=== PATIENT | male | born 1950 | race Caucasian/White ===

== ENCOUNTER 2017-08-28 05:51 | Inpatient (IN) | payer OTHER ==
[2017-08-28] MEDS: POLYMYXIN/BACITRACIN 1L IRRIG (07:22)
[2017-08-28] MEDS ORDERED: LIDOCAINE 2% (SDV) 5 ML INJ (08:00)
[2017-08-28] MEDS ORDERED: morphine SULFATE/PF (10 MG/10 ML) INJ (08:01)
[2017-08-28] MEDS ORDERED: BUPIVACAINE 0.75%/DEXT (SPINAL) 2 ML INJ (08:01)
[2017-08-28] MEDS ORDERED: PROPOFOL 20 ML (08:01)
[2017-08-28] MEDS ORDERED: CEFAZOLIN 1 GM INJ (08:01)
[2017-08-28] MEDS ORDERED: DIPHENHYDRAMINE 50 MG INJ IV (10:30)
[2017-08-28] MEDS ORDERED: NALOXONE (0.4 MG/ML) INJ IV (10:30)
[2017-08-28] MEDS ORDERED: ONDANSETRON 4 MG INJ IV (10:30)
[2017-08-28] MEDS ORDERED: HYDROmorphONE 0.5 MG/0.5 ML SYG IV ×2 (10:30)
[2017-08-28] MEDS ORDERED: ONDANSETRON 4 MG INJ (11:11)
[2017-08-28] MEDS ORDERED: DOCUSATE SODIUM 100 MG CAP PO (11:30)
[2017-08-28] MEDS: CEFAZOLIN 1 GM/50 ML (PMX) 50 ML IVPB ×2 (12:28→19:59)
[2017-08-28 12:42] LABS: HEMATOCRIT 29.7 % (42.0-52.0)
[2017-08-28 13:05] LABS: PARTIAL THROMBOPLASTIN TIME 29.1 Sec (25.0-35.0)
[2017-08-28] MEDS: LACTATED RINGER'S 1,000 ML IV ×2 (13:26→20:09)
[2017-08-28] MEDS ORDERED: WARFARIN 1 MG TAB PO (17:00)
[2017-08-28] MEDS: ACETAMINOPHEN 325 MG TAB PO (17:54)
[2017-08-28] MEDS: WARFARIN 7.5 MG TAB PO (18:43)
[2017-08-28] MEDS: ZOLPIDEM 5 MG TAB PO (20:12)
[2017-08-29] MEDS: ACETAMINOPHEN 325 MG TAB PO (00:52)
[2017-08-29] MEDS: oxyCODONE 5 MG TAB PO ×2 (01:51→09:04)
[2017-08-29] MEDS: CEFAZOLIN 1 GM/50 ML (PMX) 50 ML IVPB (03:44)
[2017-08-29 05:47] LABS: ADD MAN DIFF? NO
[2017-08-29 05:50] LABS: WHITE BLOOD COUNT 8.8 10^3/ul (4.8-10.8)
[2017-08-29 05:50] LABS: BASOPHILS % 0.1 % (0.0-2.0); EOSINOPHILS % 0.3 % (0.0-7.0); HEMATOCRIT 25.8 % (42.0-52.0); HEMOGLOBIN 8.6 g/dl (14.0-18.0); LYMPHOCYTES # 2.5 10^3/ul (0.8-2.9); LYMPHOCYTES % 28.2 % (15.0-51.0); MEAN CORPUSCULAR HGB CONC 33.3 g/dl (32.0-37.0); MEAN CORPUSCULAR VOLUME 93.1 fl (82.0-101.0); MEAN PLATELET VOLUME 11.8 fl (7.4-10.4); MONOCYTES % 11.8 % (0.0-11.0); NEUTROPHIL # 5.2 10^3/ul (1.6-7.5); NEUTROPHILS % 59.3 % (39.0-77.0); PLATELET COUNT 198 10^3/UL (140-415); RED BLOOD COUNT 2.77 10^6/ul (4.70-6.10); RED CELL DISTRIBUTION WIDTH 13.2 % (11.5-14.5)
[2017-08-29 06:10] LABS: INR 1.09; PROTIME 14.3 Sec (11.9-14.9); PT RATIO 1.1
[2017-08-29 06:13] LABS: ANION GAP 12 (8-16); BLOOD UREA NITROGEN 14 mg/dl (7-20); CARBON DIOXIDE 29 mmol/L (21-31); CHLORIDE 100 mmol/L (97-110); CREATININE 0.81 mg/dl (0.61-1.24); GLUCOSE 112 mg/dl (70-220); POTASSIUM 3.8 mmol/L (3.5-5.1); SODIUM 137 mmol/L (135-144)
[2017-08-29] MEDS: FERROUS FUMARATE (SR) TAB PO ×2 (09:04→20:47)
[2017-08-29] MEDS: LACTATED RINGER'S 1,000 ML IV (15:30)
[2017-08-29 16:29] LABS: IMMEDIATE SPIN CROSSMATCH 1 1
[2017-08-29] MEDS: WARFARIN 5 MG TAB PO (17:18)
[2017-08-29] MEDS: SOD CHLORIDE 0.9% 250 ML IV* (17:18)
[2017-08-29] MEDS: ZOLPIDEM 5 MG TAB PO (20:47)
[2017-08-30 05:37] LABS: ADD MAN DIFF? NO
[2017-08-30 05:43] LABS: BASOPHILS % 0.1 % (0.0-2.0); EOSINOPHILS % 0.4 % (0.0-7.0); HEMATOCRIT 27.2 % (42.0-52.0); HEMOGLOBIN 9.3 g/dl (14.0-18.0); LYMPHOCYTES # 1.4 10^3/ul (0.8-2.9); LYMPHOCYTES % 13.4 % (15.0-51.0); MEAN CORPUSCULAR HEMOGLOBIN 30.9 pg (29.0-33.0); MEAN CORPUSCULAR HGB CONC 34.2 g/dl (32.0-37.0); MEAN CORPUSCULAR VOLUME 90.4 fl (82.0-101.0); MEAN PLATELET VOLUME 11.6 fl (7.4-10.4); MONOCYTE # 0.9 10^3/ul (0.3-0.9); MONOCYTES % 8.9 % (0.0-11.0); NEUTROPHIL # 7.9 10^3/ul (1.6-7.5); NEUTROPHILS % 76.8 % (39.0-77.0); PLATELET COUNT 181 10^3/UL (140-415); RED BLOOD COUNT 3.01 10^6/ul (4.70-6.10); RED CELL DISTRIBUTION WIDTH 13.2 % (11.5-14.5)
[2017-08-30 05:43] LABS: WHITE BLOOD COUNT 10.3 10^3/ul (4.8-10.8)
[2017-08-30 06:04] LABS: INR 1.35; PROTIME 16.9 Sec (11.9-14.9); PT RATIO 1.3
[2017-08-30 06:40] LABS: ANION GAP 13 (8-16); BLOOD UREA NITROGEN 8 mg/dl (7-20); CALCIUM 8.1 mg/dl (8.4-10.2); CARBON DIOXIDE 25 mmol/L (21-31); CHLORIDE 95 mmol/L (97-110); CREATININE 0.67 mg/dl (0.61-1.24); GLUCOSE 116 mg/dl (70-220); POTASSIUM 3.6 mmol/L (3.5-5.1); SODIUM 129 mmol/L (135-144)
[2017-08-30] MEDS: oxyCODONE 5 MG TAB PO ×2 (07:11→11:48)
[2017-08-30] MEDS: FERROUS FUMARATE (SR) TAB PO ×2 (08:19→20:16)
[2017-08-30] MEDS: LACTATED RINGER'S 1,000 ML IV (11:30)
[2017-08-30] MEDS: predniSONE 20 MG TAB PO (11:47)
[2017-08-30] MEDS: FUROSEMIDE 40 MG INJ IV (11:50)
[2017-08-30] MEDS: DIPHENHYDRAMINE 50 MG CAP PO (17:57)
[2017-08-30] MEDS: WARFARIN 7.5 MG TAB PO (18:02)
[2017-08-30] MEDS: ZOLPIDEM 5 MG TAB PO (20:16)
[2017-08-31] MEDS: oxyCODONE 5 MG TAB PO ×2 (03:26→08:48)
[2017-08-31 05:06] LABS: ADD MAN DIFF? NO
[2017-08-31 05:11] LABS: ABNORMAL IP MESSAGE 1; BASOPHILS % 0.1 % (0.0-2.0); EOSINOPHILS % 0.4 % (0.0-7.0); HEMOGLOBIN 9.3 g/dl (14.0-18.0); LYMPHOCYTES # 0.6 10^3/ul (0.8-2.9); LYMPHOCYTES % 6.9 % (15.0-51.0); MEAN CORPUSCULAR HEMOGLOBIN 31.2 pg (29.0-33.0); MEAN CORPUSCULAR HGB CONC 35.8 g/dl (32.0-37.0); MEAN CORPUSCULAR VOLUME 87.2 fl (82.0-101.0); MEAN PLATELET VOLUME 11.5 fl (7.4-10.4); MONOCYTE # 0.6 10^3/ul (0.3-0.9); MONOCYTES % 6.9 % (0.0-11.0); NEUTROPHIL # 7.2 10^3/ul (1.6-7.5); NEUTROPHILS % 85.1 % (39.0-77.0); PLATELET COUNT 182 10^3/UL (140-415); POSITIVE DIFF @See below; RED BLOOD COUNT 2.98 10^6/ul (4.70-6.10); RED CELL DISTRIBUTION WIDTH 12.7 % (11.5-14.5)
[2017-08-31 05:11] LABS: WHITE BLOOD COUNT 8.5 10^3/ul (4.8-10.8)
[2017-08-31 05:28] LABS: ANION GAP 15 (8-16); BLOOD UREA NITROGEN 9 mg/dl (7-20); CALCIUM 8.3 mg/dl (8.4-10.2); CARBON DIOXIDE 25 mmol/L (21-31); CHLORIDE 96 mmol/L (97-110); CREATININE 0.79 mg/dl (0.61-1.24); GLUCOSE 166 mg/dl (70-220); POTASSIUM 3.7 mmol/L (3.5-5.1); SODIUM 132 mmol/L (135-144)
[2017-08-31 05:36] LABS: INR 1.51; PROTIME 18.5 Sec (11.9-14.9); PT RATIO 1.4
[2017-08-31] MEDS: LACTATED RINGER'S 1,000 ML IV (07:30)
[2017-08-31] MEDS: FERROUS FUMARATE (SR) TAB PO (08:47)
== END 2017-08-31 12:48 | disposition home or self-care (01) | DRG 470 ==
LOC: REC 05:51 → MS1 13:00
PROC: 0SRC0J9 Replacement of Right Knee Joint with Synthetic Substitute, Cemented, Open Approach (ICD-10-PCS; principal; 2017-08-28 08:00)
PROC: 30233N1 Transfusion of Nonautologous Red Blood Cells into Peripheral Vein, Percutaneous Approach (ICD-10-PCS; 2017-08-28 08:10)
DX: M17.11 Unilateral primary osteoarthritis, right knee (principal); D62 Acute posthemorrhagic anemia; G47.00 Insomnia, unspecified; R21 Rash and other nonspecific skin eruption
CPT/HCPCS: 36430; 73560; 80048; 85014; 85018; 85025; 85610; 85730; 86850; 86890; 86900; 86901; 86920; 87086; 97110; 97116; 97162; 97530